=== PATIENT | male | born 1955 | race Caucasian/White ===

== ENCOUNTER 2018-01-06 14:31 | Outpatient (CLI) | payer BC ==
--- NOTE | 2018-01-06 15:14 | ULT ---
VENOUS DOPPLER ULTRASOUND OF RIGHT LOWER EXTREMITY: Date: 01/06/18 HISTORY: Right leg edema, swelling, and pain. TECHNIQUE: Hernandez scale ultrasound with color flow and spectral Doppler imaging of the deep venous systems of the right lower extremity is performed. FINDINGS: There is good flow, compression, and augmentation noted in the right common femoral, femoral, deep fe moral, popliteal, posterior tibial, and greater saphenous veins. The region of focal swelling in the lower anterior baltazar demonstrates a heterogeneous mass measuring 1 .9 x 4.4 x 0.5 cm, likely hematoma. Clinical correlation is recommended. IMPRESSION: No evidence of deep venous thrombosis in the right lower extremity. POS: [facility]
== END 2018-01-06 14:32 | disposition home or self-care (01) ==
LOC: ULT 14:31
PROVIDERS: ATTEND Internal Medicine
DX: I82.401 Acute embolism and thrombosis of unspecified deep veins of right lower extremity (principal); I87.2 Venous insufficiency (chronic) (peripheral)

== ENCOUNTER 2022-04-03 08:30 | Outpatient (CLI) | payer BC | END 2022-04-03 08:31 | disposition home or self-care (01) | LOC: BICRAD 08:30 | PROVIDERS: ATTEND Student in an Organized Health Care Education/Training Program | DX: M25.561 Pain in right knee (principal); M17.11 Unilateral primary osteoarthritis, right knee; M25.461 Effusion, right knee ==

== ENCOUNTER 2023-12-05 10:25 | Outpatient (CLI) | payer MEDICARE | END 2023-12-05 10:26 | disposition home or self-care (01) | LOC: BICRAD 10:25 | PROVIDERS: ATTEND Family Medicine | DX: J18.9 Pneumonia, unspecified organism (principal); M75.52 Bursitis of left shoulder | CPT/HCPCS: 71046 ==